=== PATIENT | female | born 1950 | race Caucasian/White ===

== ENCOUNTER 2023-07-10 19:59 | Emergency (ER) | payer MEDICARE, SELFPAY ==
--- NOTE | ~2023-07-10 | XR_ITS ---
EXAMINATION: XR chest 1V Exam Date/Time: 07/10/2023 20:51 CDT HISTORY: SOb Comparison: None. RESULT: Lines, tubes, and devices: None. Lungs and pleura: Clear. Cardiomediastinal silhouette: Unremarkable. Other: No acute osseous or upper abdominal finding. IMPRESSION: No acute cardiopulmonary process. Reviewed, dictated and finalized at location K.
--- NOTE | ~2023-07-10 | CT_ITS ---
EXAMINATION: CT cervical spine wo con DATE: 07/10/2023 20:52 INDICATION: fall TECHNIQUE: Computed tomography (CT) of the cervical spine was performed without intravenous contrast. Automated exposure control and iterative reconstruction technique were employed. The dose-length pro duct was 217.16 mGy-cm. COMPARISON: None. FINDINGS: Vertebral Body Alignment: Intact. Reversed lordosis, centered at C5-6. Craniocervical and atlantoaxial alignment: Moderate degenerative change. Alignment intact. Osseous structures/fracture: No evidence of a lytic or blastic process in the visualized spine. No e vidence of acute fracture. Cervical soft tissues: The paraspinal soft tissues planes are maintained. Multiple subcentimeter thyr oid hypodensities which require no additional evaluation at this time. Calcified granuloma in the lef t lung apex. Degenerative changes: Degenerative changes, without severe neural foraminal or central canal narrowin g. IMPRESSION: No acute fracture or traumatic malalignment in the cervical spine. Reviewed, dictated and finalized at location K.
--- NOTE | ~2023-07-10 | CT_ITS ---
EXAMINATION: CT brain wo con DATE: 07/10/2023 20:52 INDICATION: fall . TECHNIQUE: Computed tomography (CT) of the head was performed without intravenous contrast. The mA wa s adjusted according to patient size. Iterative reconstruction technique was employed. The dose-lengt h product was 756.67 mGy-cm. COMPARISON: None. FINDINGS: No acute intracranial hemorrhage or extra-axial fluid collection. No hydrocephalus, mass, or herniation. No acute ischemic infarct. Unremarkable dural venous sinus attenuation. No acute osseous abnormality. Trace bilateral mastoid fluid, the remaining aerated spaces are clear. Mild atrophy. Atherosclerotic intracranial calcification.. IMPRESSION: No acute intracranial process. Reviewed, dictated and finalized at location K.
[2023-07-10 20:04] VITALS: BP 138/58; PULSE 84; RESP 16; TEMP 36; O2SAT 96
--- NOTE | 2023-07-10 20:19 | ECG_ITS ---
Measurements Intervals [place] Rate: 78 P: 48 W[place]: 155 QRS: 13 QRSD: 85 T: 60 QT: 374 QTc: 426 Interpretive Statements SINUS RHYTHM BASELINE ARTIFACT- I, II, V6 NORMAL ECG NO PREVIOUS ECG AVAILABLE FOR COMPARISON Electronically Signed On 07-10-2023 21:06:29 CDT by Jose Valadez D.O.
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
[2023-07-10 21:03] LABS: Basophils Absolute Auto 0.1 K/mm3 (0.0-0.1); Basophils Percent Auto 0.8 % (0.2-1.2); Eosinophils Absolute Auto 0.2 K/mm3 (0-0.3); Eosinophils Percent Auto 2.7 % (0-4.4); Hematocrit 39.7 % (37.0-47.0); Immature Granulocyte Absolute 0.02 K/mm3 (0.00-0.031); Immature Granulocyte Percent A 0.3 % (0-0.5); Lymphocytes Absolute Auto 2.26 K/mm3 (0.9-3.2); Mean Corpuscular HGB Conc 32.7 g/dl (32-36); Mean Corpuscular Volume 91.7 fl (80-100); Mean Platelet Volume 10.5 fl (7.4-10.4); Monocytes Absolute Auto 0.8 K/mm3 (0.1-0.6); Monocytes Percent Auto 13.3 % (2.6-8.5); Neutrophils Absolute Auto 2.7 K/mm3 (1.3-6.7); Neutrophils Percent Auto 44.9 % (45.5-73.1); Platelet Count Result 294 k/mm3 (150-375); Red Blood Count 4.33 M/mm3 (4.2-5.4); White Blood Count 5.9 K/mm3 (4.5-10.0)
[2023-07-10 21:10] LABS: Alanine Aminotransferase 17 U/L (6-35); Albumin Level 3.9 g/dL (3.5-5.1); Alkaline Phosphatase 81 U/L (38-126); Anion Gap 5 mmol/L (8-16); Aspartate Amino Transferase 24 U/L (14-36); Bilirubin,Total 0.3 mg/dL (0.2-1.3); Blood Urea Nitrogen 18 mg/dL (7-17); Calcium 9.1 mg/dL (8.4-10.2); Carbon Dioxide 31 mmol/L (22-30); Chloride 103 mmol/L (98-107); Estimated CRCL calculation 53 ml/min; Estimated Glomerular Filt Rate > 60; Glucose 109 mg/dL (65-110); Potassium 3.9 mmol/L (3.4-5.0); Sodium 139 mmol/L (137-145)
--- NOTE | 2023-07-10 21:29 | PC.NURSE ---
Spoke with Dr. Ellis about patients [place] assessment. VORB to cancel precautions due to preexisting treatment with a psychiatrist due to patients passing away in April.
[2023-07-10] MEDS: LIDOCAINE 5% PATCH 1 PATCH TRANSDERM (21:40)
[2023-07-10 21:50] VITALS: BP 136/74; PULSE 87; RESP 16; O2SAT 100
== END 2023-07-10 21:51 | disposition home or self-care (01) ==
LOC: ANHED 21:44
PROVIDERS: Emergency Provider Emergency Medicine
DX: R07.81 Pleurodynia (principal); S09.90XA Unspecified injury of head, initial encounter; W18.39XA Other fall on same level, initial encounter
CPT/HCPCS: 36415; 70450; 71045; 72125; 80053; 83735; 85025; 93005; 99284; A9270

== ENCOUNTER 2024-02-21 09:15 | Emergency (ER) | payer MEDICARE, SELFPAY ==
--- NOTE | ~2024-02-21 | XR_ITS ---
EXAMINATION: XR chest 2V DATE: 02/21/2024 10:22 INDICATION: Cough and congestion. TECHNIQUE: Frontal and lateral views of the chest were obtained. COMPARISON: Chest single view 07/10/2023 FINDINGS: Calcified pulmonary nodules are consistent with old granulomatous disease. No pleural effus ion or pneumothorax. The heart size is normal. There is a chronic compression fracture of T12. Surgic al clips in the right upper quadrant are likely from cholecystectomy. IMPRESSION: 1. No acute cardiopulmonary disease. Reviewed, dictated and finalized at location A. [employer]
[2024-02-21 09:51] VITALS: BP 143/58; PULSE 81; RESP 17; TEMP 36.2; O2SAT 94
[2024-02-21 09:51] LABS: EDSTREPNEGPOS1 Negative (Negative)
[2024-02-21 10:03] LABS: EDCOVIDSCREEN Negative (Negative); EDINFLUASCREEN Negative (Negative); EDINFLUBSCREEN Negative (Negative)
--- NOTE | 2024-02-21 12:41 | ED_ITS ---
HPI - URI/Sore Throat General Chief Complaint: Upper Respiratory Infection Stated Complaint: coughing and congestion Time Seen by Provider: 02/21/24 09:54 Source: patient, RN notes reviewed and old records reviewed Mode of arrival: ambulatory Limitations: no limitations History of Present Illness HPI Narrative: 73-year-old female to [facility] with complaint of runny nose, sore throat and cough for 3 days. Patient denies fever, shortness of breath, ear pain. When asked about NVD, patient reports vomiting 2-3 times per day for the past 2 days as well as diarrhea yesterday. patient's son brought her to [facility], disclose this to staff that patient is in early stages of dementia. Patient able to tolerate fluids by mouth. Respirations even and nonlabored. Patient in no acute distress. Related Data Home Medications Medication Instructions Recorded Confirmed bupropion HCl 300 mg 24 hr tablet, 300 mg PO DAILY 02/21/24 02/21/24 extended release fluoxetine 40 mg capsule 40 mg PO DAILY 02/21/24 02/21/24 lorazepam 1 mg tablet 1 mg PO DAILY 02/21/24 02/21/24 meloxicam 15 mg tablet 15 mg PO DAILY 02/21/24 02/21/24 metoclopramide HCl 5 mg tablet 5 mg PO BID 02/21/24 02/21/24 quetiapine 150 mg tablet 150 mg PO DAILY 02/21/24 02/21/24 Allergies Allergy/AdvReac Type Severity Reaction Status Date / Time Penicillins Allergy Severe Anaphylaxis Verified 02/21/24 09:57 atorvastatin AdvReac Mild Hives Verified 02/21/24 09:57 codeine AdvReac Mild Hives Verified 02/21/24 09:57 tetanus toxoid, adsorbed AdvReac Mild Hives Verified 02/21/24 09:57 Rexulti AdvReac Mild Hives Uncoded 02/21/24 09:57 Review of Systems Review of Systems: All systems reviewed & are unremarkable except as noted in HPI and below Constitutional: Constitutional: Reports no additional constitutional complaints Eyes: Eyes: Reports no additional eye complaints ENT: Reports as per HPI, Reports nasal discharge and Reports sore throat Cardiovascular: Cardiovascular: Reports no additional cardiovascular complaints, Denies chest pain and Denies dyspnea Respiratory: Respiratory: Reports no additional respiratory complaints, Reports cough and Denies dyspnea Gastrointestinal: Gastrointestinal: Reports as per HPI, Reports diarrhea, Reports nausea and Reports vomiting Musculoskeletal: Musculoskeletal: Reports no additional musculoskeletal complaints Neurologic: Reports system reviewed and no additional complaints, except as documented Psychiatric: Psychiatric: Reports no additional psychiatric complaints PMFSH Comments At the time of my signature, I reviewed and agree with the nursing past medical, surgical, social, and family history. There is no relevant family history pertinent to the patient complaint. Exam Const: General: cooperative, comfortable, no acute distress, well developed, alert, awake, well groomed and well nourished Nutritional Appearance: well nourished Orientation/consciousness: patient oriented x3 Limitations: no limitations HENMT: Head: normal to inspection Ears: external ears normal Face/Nose/Sinus: Normal external nose present, Normal nares present, normal facial exam, No erythema and No edema Face and sinus: normal facial exam, no erythema and no edema Mouth: Yes Normal oral and palatal mucosa present Eyes: General: appearance normal, both eyes and all related structures Neck: Neck: normal visual inspection, full ROM and no meningeal signs Chest: Chest palpation & inspection: normal inspection of the chest Resp: Effort & Inspection: normal respiratory effort and able to speak in complete sentences Auscultation: clear to auscultation bilaterally and diminished lung sounds bilateral in the lower lung marrufo Cardio: Jugular venous distension: no JVD Rate: regular rate Rhythm: regular rhythm Back/Spine/Pelvis: Cervical Spine: cervical ROM normal Skin: General skin exam: normal color, no rashes or lesions noted and turgor normal Neuro: General: patient oriented x3, gait normal, moves all extremities and no meningeal signs Speech: normal speech Gait exam (Neuro): Normal gait present Extrem: General: normal to inspection, full ROM and capillary refill normal Psych: Appearance: grossly normal and well kempt Course Course Emergency Course: Some parts of this dictation were generated by voice recognition software and may contain typographical and/or grammatical inaccuracies. Level of Care: [facility] Visit Vital Signs Vital signs: Vital Signs Temperature 36.2 C L 02/21/24 09:51 Pulse Rate 81 02/21/24 09:51 Respiratory Rate 17 02/21/24 09:51 Blood Pressure 143/58 H 02/21/24 09:51 Pulse Oximetry 94 02/21/24 09:51 Oxygen Delivery Room Air 02/21/24 09:51 Temperature 36.2 C L 02/21/24 09:51 Pulse Rate 81 02/21/24 09:51 Respiratory Rate 17 02/21/24 09:51 Blood Pressure 143/58 H 02/21/24 09:51 Pulse Oximetry 94 02/21/24 09:51 Oxygen Delivery Room Air 02/21/24 09:51 reviewed MDM - URI/Sore Throat MDM Narrative Medical decision making narrative: 73-year-old female to [facility] with complaint of runny nose, sore throat and cough for 3 days. Patient denies fever, shortness of breath, ear pain. When asked about NVD, patient reports vomiting 2-3 times per day for the past 2 days as well as diarrhea yesterday. patient's son brought her to [facility], disclose this to staff that patient is in early stages of dementia. Patient able to tolerate fluids by mouth. Respirations even and nonlabored. Patient in no acute distress. on auscultation, bilateral lower lung sounds diminished. Chest x-ray in clinic negative for acute findings. Exam otherwise unremarkable. Patient negative for COVID, flu, strep in clinic. Strep culture sent. Patient is sitting comfortably in exam room nontoxic in appearance. Patient appropriate for outpatient treatment and follow-up. Discharge instructions reviewed with patient, as well as provided in writing per nursing staff. The instructions also include specific and strict return/GO TO THE ER as well as f/u information. All questions have been answered, and the patient deny any further questions with discharge and discharge plan. Some parts of this dictation were generated by voice recognition software and may contain typographical and/or grammatical inaccuracies. Differential Diagnosis Differential diagnosis: Likely upper respiratory infection, croup, otitis media, sinusitis, viral infection, bronchitis, influenza and pharyngitis Lab Data Labs: Lab Results 02/21/24 02/21/24 Range/Units 09:48 10:00 POC Influenza A Ag Negative (Negative) POC Influenza B Ag Negative (Negative) POC SARS CoV-2 Ag Negative (Negative) POC Grp A Strep Screen Negative (Negative) Imaging Data Radiologist's impression: EXAMINATION: XR chest 2V DATE: 02/21/2024 10:22 INDICATION: Cough and congestion. TECHNIQUE: Frontal and lateral views of the chest were obtained. COMPARISON: Chest single view 07/10/2023 FINDINGS: Calcified pulmonary nodules are consistent with old granulomatous disease. No pleural effusion or pneumothorax. The heart size is normal. There is a chronic compression fracture of T12. Surgical clips in the right upper quadrant are likely from cholecystectomy. IMPRESSION: 1. No acute cardiopulmonary disease. Discharge Plan Discharge Clinical Impression: Viral infection Patient Disposition: Home, Self-Care Condition: Stable Instructions: Viral Syndrome (ED) Additional Instructions: Your rapid strep swab was negative today at [facility]. A throat culture will be sent to the laboratory for further testing. If the test is positive, you will receive a phone call within 48 hours and an appropriate antibiotic will be initiated at that time. Your Covid test and influenza test were also negative in clinic today Your symptoms are likely due to a viral illness, which is not treated with antibiotics. Viral symptoms can be present for up to a few weeks. -Alternate Tylenol and Motrin per package directions for fever or pain. -Antihistamine medication such as Benadryl at night and Zyrtec/Claritin/Beatriz during the day can help improve symptoms. -Use Flonase twice a day for 5 days then daily to help reduce the inflammation and dry up your sinuses. -You can also use Coricidin. Be sure to drink plenty of water with these medications at least 8 ounces with every dose and it is important to drink 8 to 10 glasses of water per day. Water is a natural decongestant -Eat and drink things that are easy to swallow, like tea or soup, or popsicles. -Oral rinses such as: Salt water gargles and/or may use topical anesthetic (eg. Chloraseptic spray) or lozenges to relieve dryness or throat pain). -Frequent hand washing or hand sheet metal duct worker supervisor is one of the best ways to prevent spread of infection. -Using a vaporizer or humidifier at night will also help thin secretions and help with coughing up phlegm. -Follow up with primary care provider in 2-3 days if condition is not improving; or seek ER visit if you have trouble breathing, cannot drink enough fluids, have muffled voice, difficulty opening your mouth, or severe swelling. Prescriptions: No Action fluoxetine 40 mg capsule 40 mg PO DAILY meloxicam 15 mg tablet 15 mg PO DAILY metoclopramide HCl 5 mg tablet 5 mg PO BID lorazepam 1 mg tablet 1 mg PO DAILY bupropion HCl 300 mg tablet extended release 24 hr 300 mg PO DAILY quetiapine 150 mg tablet 150 mg PO DAILY Follow-up/Referrals: PHYSICIAN,DELPHI PROGRAMMER [Primary Care Provider] -
== END 2024-02-21 10:43 | disposition home or self-care (01) ==
PROVIDERS: Emergency Provider Nurse Practitioner Family; Referring Provider Emergency Medicine
DX: B34.9 Viral infection, unspecified (principal); Z20.822 Contact with and (suspected) exposure to COVID-19; K21.9 Gastro-esophageal reflux disease without esophagitis; M19.90 Unspecified osteoarthritis, unspecified site; F41.9 Anxiety disorder, unspecified; F32.A Depression, unspecified
CPT/HCPCS: 71046; 87081; 87426; 87804; 87880; 99213; G0463

== ENCOUNTER 2024-03-26 09:36 | Emergency (ER) | payer MEDICARE, SELFPAY ==
--- NOTE | 2024-03-26 09:37 | ED_ITS ---
HPI - Extremity Injury (Lower) General Chief Complaint: Extremity Problem,Nontraumatic Stated Complaint: LT ankle injury Time Seen by Provider: 03/26/24 09:37 Source: patient Mode of arrival: ambulatory Limitations: no limitations History of Present Illness HPI Narrative: Patient is a 73-year-old female presents with a week and have of intermittent swelling to left ankle. Patient reports tenderness on palpation to calf and pleural signs of ankle. Denies any redness or warmth. States swelling goes down overnight after elevating. Denies any pain with walking. No history of gout, heart or kidney problems, or DVTs. Patient has PCP appointment in April. Denies any shortness of breath, fever, chills, nausea, vomiting, diarrhea. Related Data Home Medications Medication Instructions Recorded Confirmed bupropion HCl 300 mg 24 hr tablet, 300 mg PO DAILY 02/21/24 03/26/24 extended release fluoxetine 40 mg capsule 40 mg PO DAILY 02/21/24 03/26/24 lorazepam 1 mg tablet 1 mg PO DAILY 02/21/24 03/26/24 meloxicam 15 mg tablet 15 mg PO DAILY 02/21/24 03/26/24 metoclopramide HCl 5 mg tablet 5 mg PO BID 02/21/24 03/26/24 quetiapine 150 mg tablet 150 mg PO DAILY 02/21/24 03/26/24 Allergies Allergy/AdvReac Type Severity Reaction Status Date / Time Penicillins Allergy Severe Anaphylaxis Verified 03/26/24 09:38 atorvastatin AdvReac Mild Hives Verified 03/26/24 09:38 codeine AdvReac Mild Hives Verified 03/26/24 09:38 tetanus toxoid, adsorbed AdvReac Mild Hives Verified 03/26/24 09:38 Rexulti AdvReac Mild Hives Uncoded 03/26/24 09:38 Review of Systems Review of Systems: All systems reviewed & are unremarkable except as noted in HPI and below Constitutional: Constitutional: Denies body ache(s), Denies chills, Denies fatigue, Denies fever(s), Denies headache(s), Denies malaise and Denies weakness Eyes: Eyes: Denies blurry vision, Denies irritation and Denies loss of vision ENT: Denies otalgia, Denies headache(s), Denies nasal discharge, Denies sinus pain and Denies sore throat Cardiovascular: Cardiovascular: Denies chest pain, Denies irregular heart rhythm and Denies dyspnea Respiratory: Respiratory: Denies dyspnea Gastrointestinal: Gastrointestinal: Denies abdominal pain, Denies melena, Denies hematochezia, Denies diarrhea, Denies nausea and Denies vomiting Musculoskeletal: Musculoskeletal: Denies back pain, Denies myalgias, Denies arthralgias and Reports joint swelling Integumentary/Breasts: Skin/Breast: Denies pruritus and Denies rash Neurologic: Denies headache(s), Denies loss of vision and Denies weakness Psychiatric: Psychiatric: Reports no additional psychiatric complaints Endocrine: Endocrine: Denies fatigue PMFSH Comments At time of signature, agree with nursing past medical, surgical, social and family history. There is no relevant family history pertinent to the presenting complaint. Exam Const: General: cooperative, healthy appearing, comfortable, no acute distress and well nourished Nutritional Appearance: well nourished Orientation/consciousness: patient oriented x3 Limitations: no limitations HENMT: Head: normal to inspection, normocephalic and atraumatic Ears: hearing grossly normal bilaterally and external ears normal Face/Nose/Sinus: Normal external nose present, normal facial exam and face symmetric Face and sinus: normal facial exam and face symmetric Mouth: Yes lip normal Eyes: General: appearance normal, both eyes and all related structures Alignment and Position: alignment normal and position normal Periorbital: periorbital findings normal Eyelids: eyelids normal Pupils: Equal, round and reactive pupils present EOM: EOMs intact bilaterally Neck: Neck: normal visual inspection, full ROM and supple Chest: Chest palpation & inspection: normal inspection of the chest Resp: Effort & Inspection: normal respiratory effort and able to speak in complete sentences Auscultation: clear to auscultation bilaterally Cardio: Rate: regular rate Rhythm: regular rhythm Heart sounds: S1 normal heart sound present and S2 normal heart sound present GI: Inspection: normal to inspection Skin: General skin exam: normal color and no rashes or lesions noted Neuro: General: patient oriented x3 and moves all extremities Cranial nerves: Yes Equal, round and reactive pupils present Speech: normal speech Gait exam (Neuro): Normal gait present Extrem: General: normal to inspection, full ROM and no edema Left lower extremity: lower leg Details: tenderness Location: of the posterior calf and no edema; no erythema, no ecchymosis, no deformity and no unusual warmth, ankle Details: tenderness Location: of the lateral malleolus and of the medial malleolus and normal ROM; no swelling, no warmth, no ecchymosis and achilles tendon exam normal and foot Details: normal capillary refill, normal to inspection, toes with normal ROM, vascular exam Details: dorsalis pedis pulse present and normal capillary refill, tendon exam active flexion normal and active extension normal of all toes and motor-sensory exam; no tenderness, no unusual warmth and no ecchymosis Psych: Appearance: grossly normal and well kempt Mental Status: mental status grossly normal Speech and movement: Normal speech and movement present Affect: normal affect Attitude: cooperative Thought process: Normal thought process present Course Course Emergency Course: Patient is aware of diagnosis, understands and agrees to treatment plan. Anticipatory guidance given. Patient agrees to follow-up as directed and is aware of reasons to seek care at the emergency department. Portions of this record may have been created with voice recognition software Level of Care: Express Care Visit Vital Signs Vital signs: Reviewed MDM - Extremity Injury (Lower) MDM Narrative Medical decision making narrative: Exam findings show no acute concerns or changes; patient is non-toxic appearing and is in no distress.? Patient is appropriate for outpatient treatment and follow-up. Discharge instructions reviewed with patient, as well as provided in writing per nursing staff. The instructions also include specific and strict return/GO TO THE ER as well as f/u information. All questions have been answered, and the patient deny any further questions with discharge and discharge plan. Differential Diagnosis Differential diagnosis: Likely ankle sprain and strain, ankle fracture and other (DVT, gout, CHF, lymphatic insufficiency) Medical Records Attestation: I reviewed the patient's medical records. Discharge Plan Discharge Clinical Impression: Lower extremity edema Patient Disposition: Home, Self-Care Condition: Stable Instructions: Leg Edema (ED) Additional Instructions: Call your primary and try to schedule sooner appointment or have outpatient labs and ultrasound ordered. If unable go to the ER if symptoms persist. Keep Masoud wrap or compression sock on during the day. Continue taking all medication. Your blood pressure was elevated above 120/80 today at Urgent Care. This puts you above the threshold for follow up visit with a primary care provider. High blood pressure does not usually cause any symptoms, however it may lead to kidney failure, stroke, heart disease just to name a few if untreated . Many people are anxious when seeing a provider or nurse. As a result, you are not diagnosed with hypertension at this time unless your blood pressure is persistently high at two office visits at least one week apart. Some things valeriano t can help lower blood pressure are lifestyle modifications, such as light exercise, decreased salt in diet, and weight loss. It is important to follow up with a PCP about this within 1 week. Prescriptions: No Action fluoxetine 40 mg capsule 40 mg PO DAILY meloxicam 15 mg tablet 15 mg PO DAILY metoclopramide HCl 5 mg tablet 5 mg PO BID lorazepam 1 mg tablet 1 mg PO DAILY bupropion HCl 300 mg tablet extended release 24 hr 300 mg PO DAILY quetiapine 150 mg tablet 150 mg PO DAILY Follow-up/Referrals: Jose Luis Garvin MD [Physician] - 3 Days UNKNOWN,DOCTOR [Non-Staff] - Time of Disposition: 10:09
[2024-03-26 09:46] VITALS: BP 157/66; PULSE 75; RESP 18; TEMP 36.1; O2SAT 96
== END 2024-03-26 10:10 | disposition home or self-care (01) ==
PROVIDERS: Emergency Provider Nurse Practitioner Family
DX: R60.0 Localized edema (principal); K21.9 Gastro-esophageal reflux disease without esophagitis; M19.90 Unspecified osteoarthritis, unspecified site; F41.9 Anxiety disorder, unspecified; F32.A Depression, unspecified
CPT/HCPCS: 99212; G0463

== ENCOUNTER 2024-04-02 08:47 | Emergency (ER) | payer MEDICARE, SELFPAY ==
--- NOTE | ~2024-04-02 | XR_ITS ---
XR ankle LT min 3V Ordering provider: Dario Jones APRN History: . left ankle pain and swelling no injury . Comparison: None. FINDINGS: BONES: No acute fracture or dislocation. JOINT SPACES: The ankle mortise is normal. SOFT TISSUES: Normal. IMPRESSION: No acute osseous abnormality left ankle. Reviewed, dictated and finalized at location A. 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
[2024-04-02 08:53] VITALS: BP 152/79; PULSE 73; RESP 16; TEMP 36.7; O2SAT 97
--- NOTE | 2024-04-02 09:13 | ED_ITS ---
HPI - Extremity Problem General Chief complaint: Extremity Problem,Nontraumatic Stated complaint: L lower leg Swelling Time Seen by Provider: 04/02/24 09:02 History of Present Illness HPI Narrative: 73 y/o female presents wtih left ankle pain x 2 weeks. patient states she tripped on her dog and thinks she rolled her ankle. patient has been having pain and swelling for the past couple of days. patient was seen at but had no imaging done. patient has been elevating, taking motrin, and using compression with some relief. patient denies any other injuries. Onset (ago): week(s) (2) Related Data Home Medications ?Medication ?Instructions ?Recorded ?Confirmed ?Last Taken ?Type bupropion HCl 300 mg 24 hr tablet, 300 mg PO DAILY 02/21/24 03/26/24 Unknown History extended release fluoxetine 40 mg capsule 40 mg PO DAILY 02/21/24 03/26/24 Unknown History lorazepam 1 mg tablet 1 mg PO DAILY 02/21/24 03/26/24 Unknown History meloxicam 15 mg tablet 15 mg PO DAILY 02/21/24 03/26/24 Unknown History metoclopramide HCl 5 mg tablet 5 mg PO BID 02/21/24 03/26/24 Unknown History quetiapine 150 mg tablet 150 mg PO DAILY 02/21/24 03/26/24 Unknown History Allergies Allergy/AdvReac Type Severity Reaction Status Date / Time Penicillins Allergy Severe Anaphylaxis Verified 04/02/24 08:49 atorvastatin AdvReac Mild Hives Verified 04/02/24 08:49 codeine AdvReac Mild Hives Verified 04/02/24 08:49 tetanus toxoid, adsorbed AdvReac Mild Hives Verified 04/02/24 08:49 Rexulti AdvReac Mild Hives Uncoded 04/02/24 08:49 Review of Systems Musculoskeletal: Musculoskeletal: Reports arthralgias and Reports joint swelling Comments: left ankle Exam Const: General: healthy appearing and no acute distress HENMT: Head: normal to inspection Eyes: Conjunctivae: conjunctivae normal Neck: Neck: normal visual inspection Chest: Chest palpation & inspection: normal inspection of the chest Resp: Effort & Inspection: normal respiratory effort Cardio: Rate: regular rate GI: GI Palp: Yes Soft to palpation Back/Spine/Pelvis: Back: no CVA tenderness Skin: General skin exam: normal color Neuro: General: patient oriented x3 Extrem: General: edema (ankle to lateral aspect) left Psych: Affect: normal affect Course Course Emergency Course: will get x-ray of left ankle to r/o fracture x-ray is negative. will treat as sprain with rice therapy Vital Signs Vital signs: Vital Signs Temperature 36.7 C 04/02/24 08:53 Pulse Rate 73 04/02/24 08:53 Respiratory Rate 16 04/02/24 08:53 Blood Pressure 152/79 H 04/02/24 08:53 Pulse Oximetry 97 04/02/24 08:53 Oxygen Delivery Room Air 04/02/24 08:53 Temperature 36.7 C 04/02/24 08:53 Pulse Rate 73 04/02/24 08:53 Respiratory Rate 16 04/02/24 08:53 Blood Pressure 152/79 H 04/02/24 08:53 Pulse Oximetry 97 04/02/24 08:53 Oxygen Delivery Room Air 04/02/24 08:53 MDM - Extremity (Nontraumatic) Differential Diagnosis Differential diagnosis: Likely other (fx vs sprain) Imaging Data Radiologist's impression: negative for acute fx Discharge Plan Discharge Clinical Impression: Left ankle sprain Patient Disposition: Home, Self-Care Condition: Stable Instructions: Antibiotic Form, Ankle Sprain (ED) Additional Instructions: TAKE MOTRIN EVERY 6 HRS FOR PAIN AND SWELLING ICE AREA 4 X A DAY FOR 20 MINUTES AT A TIME FOLLOW-UP WITH ORTHOPEDICS NEEDED Patient Language: Bangladeshi Prescriptions: No Action fluoxetine 40 mg capsule 40 mg PO DAILY meloxicam 15 mg tablet 15 mg PO DAILY metoclopramide HCl 5 mg tablet 5 mg PO BID lorazepam 1 mg tablet 1 mg PO DAILY bupropion HCl 300 mg tablet extended release 24 hr 300 mg PO DAILY quetiapine 150 mg tablet 150 mg PO DAILY Follow-up/Referrals: PHYSICIAN NOT ON STAFF,NONSTAFF [Primary Care Provider] - Time of Disposition: 09:37
--- OUTSIDE RECORDS SUMMARY | 2024-04-08 18:16 | XMS_ITS | Continuity of Care Document ---
Author Organization [facility] Address [address] [place] [address] Phone Care Team Providers Care Product Development Ecologist Name Role Phone Nico Chairez MD Unavailable Unavailable Allergies, Adverse Reactions, Alerts Substance Reaction Status Criticality TETANUS AND DIPHTHERIA TOXOIDS, ADSORBED, ADULT Active No Information codeine Active No Information Medications Medication Instructions Dosage Effective Dates (start - stop) Status Comments Seroquel 200 mg tablet take 1 tablet by ORAL route every day at hs 200 MG - Active fluoxetine 20 mg capsule take 1 Capsule by ORAL route every day in the morning 20 MG - Active Prozac 10 mg capsule take 1 capsule by o ral route 2 times every day 10 MG - Active Klonopin 1 mg tablet take 1 tablet (1MG) by oral route 2 times daily as needed for extreme anxiety - Active Vicodin 5 mg-500 mg tablet take 1 tablet by oral route every 4 - 6 hours as needed for pain - Active Procedures Procedure Date OFFICE/OUTPATIENT VISIT, NEW OFFICE/OUTPATIENT VISIT, NEW OFFICE/OUTPATIENT VISIT, EST OFFICE/OUTPATIENT VISIT, EST OFFICE/OUTPATIENT VISIT, EST Advance Directives Directive Yes / No Effective Date File Name No Information Encounters Encounter Description Practice Location Reason(s) For Visit Diagnoses Date Provider Providers Copied on Encounter [facility], [address] [place] [address], [address], [place] tel:[phone] [facility] No Information Jun- 2-201 8 Mihaela Walsh. [address], [place], [facility], [place]. tel:[phone] OFFICE/OUTPA TIENT VISIT, [facility], [address] [place] [address], [facility], tel:[phone] *[facility] Bipolar disorder, current episode depressed, severe, with psychotic featuresGener alized anxiety disorder 7 Terrell Oviedo. [address] [place], [address], [place]. tel:[phone] OFFICE/OUTPA TIENT VISIT, [facility], [address] [place] [address], [address], tel:[phone] *[facility] depression (chief complaint)b ipolar (chief complaint) Bipolar 1 disorder 7 Yaya Amaral. [address] [place] [address], [facility], . tel:[phone] OFFICE/OUTPA TIENT VISIT, [facility], [address] [place] [address], [address], [place] tel:[phone] Textic anxiety (chief complaint) No Information 0 3 No Information OFFICE/OUTPA TIENT VISIT, [facility], [address] [place] [address], [address], [place] tel:[phone] [email or web address] [facility] disorder (chief complaint) Overweight 3 No Information OFFICE/OUTPA TIENT VISIT, [facility], [address] [place] [address], [address], [place] tel:[phone] [employer] bipolar disorder (chief complaint) Bipolar affective, mixed, sev w/ psychMalignan t Neoplasm, BreastMaligna nt neoplasm of ovaryMigraine 3 Terrell [address]. [address] [place], [address], [place]. tel:[phone] [facility], [address] [place] [address], [address], [place] tel:[phone] [facility] No Information 3 Terrell [address]. [address] [place], [address], [place]. tel:[phone] Family History Family Member Type Diagnosis Age At Onset No Information Payers Payer name Insurance type Covered constitution party ID Authoriza tion(s) No Information Social History Type Description Quantity Date Captured Comments Sex Female Smoking Status No Information Sexual Orientation Straight or heterosexual Chief Complaint And Reason For Visit No Information Reason For Referral Reason For Referral No Information Plan Of Treatment Date Type Action Status Goal H&P. Due on due Goal PAP. Due on due Goal Tobacco Counseling. Due on due Goal Blood Pressure Check. Due on due Goal Colonoscopy. Due on due Goal Mammogram. Due on due Goal OPHTHALMOLOGy REFERRAL. Due on due Goal Td vaccine. Due on 17 due Goal Tdap. Due on due Goal Annual Exam. Due on due Goal History & Physical. Due on due Goal Influenza vaccine. Due on due Goal Zoster vaccine. Due on due Goal FOBT. Due on due Goal Suicide Risk Ass essment (suicide/homicide risk). Due on due Goal Screening/Behavi oral Counseling for Alcohol Misuse. Due on due Goal Dietary management education , guidance, and counseling completed Goal Zoster vaccine. Due on due Goal Tdap. Due on due Goal Td vaccine. Due on 17 due Goal Mammogram. Due on 7 due Goal Influenza vaccine. Due on due Goal Annual Exam. Due on 017 due Goal Pap/HPV testing. Due on due Goal OPHTHALMOLOGy REFERRAL. Due on due Goal IT ADMINISTRATIVE ASSISTANT exam. Due on due Goal Depression screening. Due on due Goal Colonoscopy. Due on 017 due Goal Blood Pressure Check. Due on due Goal Tobacco Counseling. Due on due Goal H&P. Due on due Goal FOBT. Due on due Goal Suicide Risk Ass essment (suicide/homicide risk). Due on due Goal Screening/Behavi oral Counseling for Alcohol Misuse. Due on due History Of Present Illness Encounter Date Complaint History Of Prese nt Illness depression This is a follow up visit. There is improvement of initial symptoms. The patient presents with depressed mood, difficulty concentrating, difficulty falling asleep and restlessness but denies difficulty staying asleep or excessive worry. bipolar The symptoms are reported as being moderate. The symptoms occur daily. Functional Status Date Functional Assessmen t No Information Instructions Date Instruction Additional Infor shelly Dietary management e ducation, guidance, and counseling Related to Body mass index (BMI) 31.0-31.9, adult continue medications appt with in september Related to Bipolar 1 disorder Daily exposure to sunshine Call office if symptoms worsen Sleep hygiene Go to ER if for suic idal/homicidal ideation Activity as tolerated Reviewed medications Dietary counseling Related to Ov erweight Assessments Type Assessment Date No Information Patient Care Teams Name Effective Dates (start - stop) Status Members No Information
--- OUTSIDE RECORDS SUMMARY | 2024-04-09 03:54 | XMS_ITS | Continuity of Care Document ---
Author Organization [facility] Address [address] [place] [address] Phone Care Team Providers Care Angular Js Developer Name Role Phone Nico Chairez MD Unavailable Unavailable Allergies, Adverse Reactions, Alerts Substance Reaction Status Criticality TETANUS AND DIPHTHERIA TOXOIDS, ADSORBED, ADULT Active No Information codeine Active No Information Medications Medication Instructions Dosage Effective Dates (start - stop) Status Comments Seroquel 200 mg tablet take 1 tablet by ORAL route every day at hs 200 MG - Active Prozac 10 mg capsule take 1 capsule by o ral route 2 times every day 10 MG - Active fluoxetine 20 mg capsule take 1 Capsule by ORAL route every day in the morning 20 MG - Active Klonopin 1 mg tablet [...] Diagnoses Date Provider Providers Copied on Encounter [facility], [address] [place] [address], [address], [place] tel:[phone] [facility] No Information Jun- 2-201 8 Mihaela Walsh. [address] [place], [place], [facility], [place]. tel:[phone] OFFICE/OUTPA TIENT VISIT, [facility], [address] [place] [address], [facility], tel:[phone] *[facility] Bipolar disorder, current episode depressed, severe, with psychotic featuresGener alized anxiety disorder 7 Terrell Ov[address]. [address] [place], [address], [place]. tel:[phone] OFFICE/OUTPA TIENT VISIT, [facility], [address] [place] [address], [address], tel:[phone] *[facility] depression (chief complaint)b ipolar (chief complaint) Bipolar 1 disorder 7 Yaya Amaral. [address] [place] [address], [facility], . tel:[phone] OFFICE/OUTPA TIENT VISIT, [facility], [address] [place] [address], [address], [place] tel:[phone] [employer] anxiety (chief complaint) No Information 0 3 No Information OFFICE/OUTPA TIENT VISIT, [facility], [address] [place] [address], [address], [place] tel:[phone] [employer] [facility] [employer] bipolar disorder (chief complaint) Overweight 3 No Information OFFICE/OUTPA TIENT VISIT, [facility], [address] [place] [address], [address], [place] tel:[phone] [employer] bipolar disorder (chief complaint) Bipolar affective, mixed, sev w/ psychMalignan t Neoplasm, BreastMaligna nt neoplasm of ovaryMigraine 3 Terrell [address]. [address] [place], [address], [place]. tel:[phone] [facility], [address] [place] [address], [address], [place] tel:[phone] [employer] No Information 3 Terrell [address]. [address] [place], [address], [place]. tel:[phone] Family History Family Member Type Diagnosis Age [...] Of Treatment Date Type Action Status Goal Screening/Behavi oral Counseling for Alcohol Misuse. Due on due Goal Suicide Risk Ass essment (suicide/homicide risk). Due on due Goal FOBT. Due on due Goal H&P. Due on due Goal PAP. Due on due Goal Tobacco Counseling. Due on due Goal Blood Pressure Check. Due on due Goal Colonoscopy. Due on 017 due Goal Mammogram. Due on 7 due Goal OPHTHALMOLOGy REFERRAL. Due on due Goal Td vaccine. Due on 17 due Goal Tdap. Due on due Goal Annual Exam. Due on 017 due Goal History & Physical. Due on due Goal Influenza vaccine. Due on due Goal Zoster vaccine. Due on due Goal Dietary management education , guidance, and counseling completed Goal Screening/Behavi oral Counseling for Alcohol Misuse. Due on due Goal Suicide Risk Ass essment (suicide/homicide risk). Due on due Goal FOBT. Due on due Goal H&P. Due on due Goal Tobacco Counseling. Due on due Goal Blood Pressure Check. Due on due Goal Colonoscopy. Due on 017 due Goal Depression screening. Due on due Goal REAL ESTATE SUBAGENT exam. Due on due Goal OPHTHALMOLOGy REFERRAL. Due on due Goal Pap/HPV testing. Due on due Goal Annual Exam. Due on 017 due Goal Influenza vaccine. Due on due Goal Mammogram. Due on 7 due Goal Td vaccine. Due on 17 due Goal Tdap. Due on due Goal Zoster vaccine. Due on due History Of Present Illness Encounter Date Complaint History Of Prese nt Illness bipolar The symptoms are reported as being moderate. The symptoms occur daily. depression This is a follow up visit. There is improvement of initial symptoms. The patient presents with depressed mood, difficulty concentrating, difficulty falling asleep and restlessness but denies difficulty staying asleep or excessive worry. Functional Status Date Functional Assessmen t No Information Instructions Date Instruction Additional Infor shelly Dietary management e ducation, guidance, and counseling Related to Body mass index (BMI) 31.0-31.9, adult continue medications appt with in september Related to Bipolar 1 disorder Reviewed medications Activity as tolerated Daily exposure to sunshine Call office if symptoms worsen Sleep hygiene Go to ER if for suic idal/homicidal ideation Dietary counseling Related to Ov erweight Assessments Type Assessment Date No Information Patient Care Teams Name Effective Dates (start - stop) Status Members No Information
== END 2024-04-02 09:48 | disposition home or self-care (01) ==
PROVIDERS: Emergency Provider Nurse Practitioner Family
DX: S93.402A Sprain of unspecified ligament of left ankle, initial encounter (principal); Z79.899 Other long term (current) drug therapy; W01.0XXA Fall on same level from slipping, tripping and stumbling without subsequent striking against object, initial encounter
CPT/HCPCS: 73610; 99283

== ENCOUNTER 2025-02-17 14:24 | Emergency (ER) | payer MEDICARE, SELFPAY ==
--- NOTE | ~2025-02-17 | CT_ITS ---
EXAMINATION: CT facial bones wo con COMPARISON: None HISTORY: Fall TECHNIQUE: Axial images were obtained without IV contrast. Sagittal, coronal reconstruction images were obtained from the axial views. CT scan performed using dose optimization techniques including the following automated exposure control; adjustment of mA and/or kV; use of iterative reconstruction technique. Automatic exposure control was used to reduce radiation dose. Permanent radiation dose record is archived to PACS. FINDINGS: Nasal bones intact. Anterior maxillary sinus godo and zygomatic arches intact. Temporomandibular joints intact. Orbital floors and medial orbits are intact. No significant sinusitis. No retrobulbar hemorrhage or preseptal soft tissue swelling. Visualized brain parenchyma appears unremarkable. There is minimal soft tissue swelling noted overlying the left maxilla. IMPRESSION: No acute fracture identified Reviewed, dictated and finalized at location P. [facility] CLIPPER
--- NOTE | ~2025-02-17 | CT_ITS ---
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 Technique: Axial images obtained of the brain without contrast. One or more of the following dose reduction techniques were used: automated exposure control, adjustment of the mA and/or kV according to patient size, use of iterative reconstruction technique. Findings: No acute infarct or parenchymal hemorrhage. No abnormal mass or mass effect. No midline shift. No extra-axial fluid collections. No hydrocephalus. Mastoid air cells unremarkable. Sinuses and orbits unremarkable. No acute fracture. No significant facial or scalp soft tissue swelling evident. No radiopaque foreign body is seen. Impression: 1.No acute intracranial abnormality. Reviewed, dictated and finalized at location P. 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
[2025-02-17 14:30] VITALS: BP 119/68; PULSE 87; RESP 20; TEMP 36.6; O2SAT 97
--- NOTE | 2025-02-17 16:30 | ED.FALL ---
HPI - Fall General Chief Complaint: Fall Stated Complaint: fall yesterday Time Seen by Provider: 02/17/25 15:45 History of Present Illness HPI Narrative: Patient is a 74-year-old female who presents ER after trip and fall. It occurred yesterday. She struck her head on the left side. No loss of consciousness. Has abrasion to left forehead. She also has some swelling and bruising beneath the left eye. She has bruising over the bridge of her nose. No nausea or vomiting. No headache. No numbness or weakness to an arm or leg. Denies neck pain. Due to swelling under eye she is concerned she may need fluid drained from under the skin. Related Data Home Medications ?Medication ?Instructions ?Recorded ?Confirmed ?Last Taken ?Type bupropion HCl 300 mg 24 hr tablet, 300 mg PO DAILY 02/21/24 03/26/24 Unknown History extended release fluoxetine 40 mg capsule 40 mg PO DAILY 02/21/24 03/26/24 Unknown History lorazepam 1 mg tablet 1 mg PO DAILY 02/21/24 03/26/24 Unknown History meloxicam 15 mg tablet 15 mg PO DAILY 02/21/24 03/26/24 Unknown History metoclopramide HCl 5 mg tablet 5 mg PO BID 02/21/24 03/26/24 Unknown History quetiapine 150 mg tablet 150 mg PO DAILY 02/21/24 03/26/24 Unknown History Allergies Allergy/AdvReac Type Severity Reaction Status Date / Time Penicillins Allergy Severe Anaphylaxis Verified 04/02/24 08:49 atorvastatin Allergy Unknown Vomiting,Hi Unverified 06/28/24 11:02 ves codeine Allergy Unknown lethargy,Hi Unverified 06/28/24 11:02 ves Rexulti Allergy Unknown ,Hives Unverified 06/28/24 11:02 tetanus toxoid, adsorbed Allergy Unknown Rash,Hives Unverified 06/28/24 11:02 Rexulti AdvReac Mild Hives Uncoded 04/02/24 08:49 Review of Systems Review of Systems: All systems reviewed & are unremarkable except as noted in HPI and below Constitutional: Constitutional: Reports no additional constitutional complaints Eyes: Eyes: Reports no additional eye complaints ENT: Reports system reviewed and no additional complaints, except as documented Cardiovascular: Cardiovascular: Reports no additional cardiovascular complaints Musculoskeletal: Musculoskeletal: Reports no additional musculoskeletal complaints Integumentary/Breasts: Skin/Breast: Reports system reviewed and no additional complaints, except as docu Neurologic: Reports system reviewed and no additional complaints, except as documented PMFSH Past Medical History Medical History (Updated 02/17/25 @ 16:35 by Job Galvez MD) Hypertension Exam Narrative: GENERAL: Well-appearing, well-nourished, and in no acute distress. HEAD: Normocephalic, abrasions to the left forehead with underlying bruise. EYES: PERRLA and EOMI. Mild swelling inferior to the left eye with bruising. ENT: Mucous membranes moist. Bruising over the bridge in the nose. NECK: Supple. EXTREMITIES: Normal range of motion. No edema. SKIN: Warm, dry, no rash. NEURO: Alert and oriented x3. PSYCH: Normal mood and affect. Course Course Emergency Course: Superficial injury. Imaging negative. Appropriate for discharge home. Vital Signs Vital signs: Vital Signs Temperature 97.9 F 02/17/25 14:30 Pulse Rate 87 02/17/25 14:30 Respiratory Rate 20 02/17/25 14:30 Blood Pressure 119/68 02/17/25 14:30 Pulse Oximetry 97 02/17/25 14:30 Temperature 97.9 F 02/17/25 14:30 Pulse Rate 87 02/17/25 14:30 Respiratory Rate 20 02/17/25 14:30 Blood Pressure 119/68 02/17/25 14:30 Pulse Oximetry 97 02/17/25 14:30 MDM - Fall Differential Diagnosis Differential diagnosis: Likely syncope, concussion with loss of consciousness, concussion without loss of consciousness and other (eye injury, abrasions/contusion) Imaging Data Radiologist's impression: ITS Impressions Head CT 02/17/25 15:55 Impression: 1.No acute intracranial abnormality. Face CT 02/17/25 16:06 IMPRESSION: No acute fracture identified Discharge Plan Discharge Clinical Impression: Contusion of face, Abrasion of face Patient Disposition: Home Condition: Stable Instructions: Contusion in Adults (ED), Abrasion (ED) Additional Instructions: Return to the ER if you fall again, you lose consciousness, you develop chest pain, or you have additional concerns. Take Tylenol or ibuprofen as needed for pain. Patient Language: Greek Prescriptions: No Action fluoxetine 40 mg capsule 40 mg PO DAILY meloxicam 15 mg tablet 15 mg PO DAILY metoclopramide HCl 5 mg tablet 5 mg PO BID lorazepam 1 mg tablet 1 mg PO DAILY bupropion HCl 300 mg tablet extended release 24 hr 300 mg PO DAILY quetiapine 150 mg tablet 150 mg PO DAILY Follow-up/Referrals: PHYSICIAN NOT ON STAFF,NONSTAFF [Primary Care Provider] - 1 Week
== END 2025-02-17 16:58 | disposition home or self-care (01) ==
PROVIDERS: Emergency Provider Emergency Medicine
DX: S00.33XA Contusion of nose, initial encounter (principal); S00.83XA Contusion of other part of head, initial encounter; S00.12XA Contusion of left eyelid and periocular area, initial encounter; S00.81XA Abrasion of other part of head, initial encounter; I10 Essential (primary) hypertension; Z79.899 Other long term (current) drug therapy; W01.0XXA Fall on same level from slipping, tripping and stumbling without subsequent striking against object, initial encounter
CPT/HCPCS: 70450; 70486; 99284